=== PATIENT | female | born 1970 | race Caucasian/White ===

== ENCOUNTER 2019-05-21 17:01 | Emergency (ER) | payer OTHER ==
[~2019-05-21] VITALS: Ht 152.4 cm; Wt 140.9 kg
[~2019-05-21 17:01] MED LIST: CAPT25TA3 PO; HYDR1CAP2 PO; RANI150C4 PO
[2019-05-21 17:09] VITALS: BP 137/76
[2019-05-21] MEDS ORDERED: PROP10TA73 PO (17:10)
[2019-05-21] MEDS ORDERED: LINA5TAB PO (17:10)
[2019-05-21] MEDS ORDERED: METF-960 PO (17:10)
[2019-05-21 17:20] LABS: GLUCOSE,POINT OF CARE 166 MG/DL (70-110)
== END 2019-05-21 19:47 | disposition left against medical advice (07) ==
LOC: EMS 17:02
DX: R30.0 Dysuria (principal); I10 Essential (primary) hypertension; E78.00 Pure hypercholesterolemia, unspecified; E11.9 Type 2 diabetes mellitus without complications; J45.909 Unspecified asthma, uncomplicated; F41.9 Anxiety disorder, unspecified; F17.210 Nicotine dependence, cigarettes, uncomplicated; Z79.84 Long term (current) use of oral hypoglycemic drugs
CPT/HCPCS: 51702